=== PATIENT | female | born 2005 | race Caucasian/White ===

== ENCOUNTER 2024-04-30 17:56 | Emergency (ER) | payer MEDICAID, OTHER, SELFPAY ==
[2024-04-30 18:22] LABS: Bilirubin Negative (Negative); Blood, Urine Negative (Negative); Glucose, Urine (Dipstick) Negative (Negative); Ketone, Urine 15 mg/dL (Negative); Leukocyte Negative (Negative); Nitrite Negative (Negative); Protein, Urine (Dipstick) Trace mg/dL (Neg-Trace); Specific Gravity, Urine 1.025 (1.005-1.030)
[2024-04-30 18:24] LABS: Clarity Hazy (Clear)
[2024-04-30 18:31] LABS: RBC/HPF None Seen HPF (0-3)
[2024-04-30 18:32] LABS: Bacteria/HPF Rare-Few HPF (None Seen); CAUTI Indications for Culture Pregnancy; Mucous/LPF 3+ LPF (<2+); Urine Culture Reflex Yes Yes; WBC/HPF None Seen HPF (0-3)
[2024-04-30] MEDS ORDERED: Sodium Chloride 0.9% 1,000 ML ONE (18:39)
[2024-04-30] MEDS ORDERED: Ondansetron PF 4 MG/2 ML Vial ONE (18:39)
[2024-04-30] MEDS ORDERED: Acetaminophen 325 MG TAB ONE (19:00)
[2024-04-30 19:20] LABS: Band 1 % (5-11); Hematocrit 40.9 % (36.0-47.0); Lymphocytes 5 % (28-48); MDiff Complete? YES; Manual Diff?? YES; Mean Corpuscular HGB CONC 31.9 g/dL (32.0-36.0); Mean Corpuscular Hemoglobin 28.8 pg (25.0-35.0); Mean Corpuscular Volume 90.4 fl (78.0-98.0); Mean Platelet Volume 7.7 fL (7.4-10.4); Monocytes 2 % (0-4); Neutrophil 84 % (31-61); Platelet Count 127 10x3/uL (130-400); RBC Distribution Width 12.7 % (11.5-14.5); Red Blood Cell (RBC) Count 4.52 mill/uL (4.00-5.20); White Blood Cell (WBC) Count 5.5 10x3/uL (4.8-10.8)
[2024-04-30 19:21] LABS: Platelet Adequacy Comment Appears Decreased; RBC Morph Comment Within Normal Limits; Reactive Lymphocytes 8 % (0-10)
[2024-04-30 19:22] LABS: ALT (SGPT) 13 U/L (8-55); AST (SGOT) 18 U/L (5-34); Albumin 4.3 g/dL (3.5-5.0); Alkaline Phosphatase 51 U/L (40-100); Anion Gap 15 mmol/L (10-20); BUN (Urea Nitrogen) 7 mg/dL (7.0-18.7); Bilirubin, Total 0.7 mg/dL (0.2-1.2); Calc. Creatinine Clearance 0 mL/min (70-130); Calcium 9.3 mg/dL (7.8-10.44); Carbon Dioxide 22 mmol/L (22-29); Chloride 104 mmol/L (98-107); Estimated GFR 128; Globulin 3.3 g/dL (2.4-3.5); Glucose 90 mg/dL (70-105); Potassium 3.6 mmol/L (3.5-5.1); Protein, Total 7.6 g/dL (6.0-8.3); Sodium 137 mmol/L (136-145)
== END 2024-04-30 20:20 | disposition home or self-care (01) ==
LOC: MADERS 17:56
DX: O98.512 Other viral diseases complicating pregnancy, second trimester (principal); B34.9 Viral infection, unspecified; Z3A.15 15 weeks gestation of pregnancy
CPT/HCPCS: 80053; 81001; 83605; 85025; 87086; 96361; 96374; J2405; J7050